=== PATIENT | female | born 1990 | race African-American/Black ===

== ENCOUNTER 2019-02-13 14:50 | Emergency (ER) | payer BC, OTHER, SELFPAY ==
[2019-02-13] MEDS ORDERED: Ketorolac Tromethamine 30 MG/ML VIAL ONE (15:12)
== END 2019-02-13 15:37 | disposition home or self-care (01) ==
LOC: ERS 14:50
DX: S33.5XXA Sprain of ligaments of lumbar spine, initial encounter (principal); W18.2XXA Fall in (into) shower or empty bathtub, initial encounter
CPT/HCPCS: 96372; 99283; J1885

== ENCOUNTER 2020-09-23 23:38 | Inpatient (IN) | payer OTHER ==
[2020-09-24] MEDS ORDERED: Ondansetron PF 4 MG/2 ML Vial ONE ×2 (01:14→10:54)
[2020-09-24] MEDS ORDERED: Piperacillin/Tazobactam 3.375 GM VIAL ONE (01:14)
[2020-09-24] MEDS ORDERED: Morphine 4 MG/ML VIAL ONE (01:14)
[2020-09-24 05:18] VITALS: BMI 45.4
[2020-09-24] MEDS: diphenhydrAMINE 25 MG CAP PO PRN (05:39)
[2020-09-24 06:17] LABS: Hemoglobin 10.9 g/dL (12.0-16.0); Mean Corpuscular HGB CONC 32.9 g/dL (32.0-36.0); Mean Corpuscular Hemoglobin 30.4 pg (27.0-31.0); Mean Corpuscular Volume 92.4 fL (78.0-98.0); Mean Platelet Volume 9.2 fL (7.4-10.4); Platelet Count 225 thou/uL (130-400); RBC Distribution Width 13.3 % (11.5-14.5); Red Blood Cell (RBC) Count 3.59 mill/uL (4.20-5.40); White Blood Cell (WBC) Count 4.5 thou/uL (4.8-10.8)
[2020-09-24] MEDS ORDERED: Ondansetron PF 4 MG/2 ML Vial IVP PRN (06:17)
[2020-09-24] MEDS ORDERED: Ondansetron ODT 4 MG TAB PO PRN (06:18)
[2020-09-24] MEDS ORDERED: Acetaminophen 325 MG TAB PO PRN (06:18)
[2020-09-24 06:20] LABS: SARS-CoV-2 NAA Rapid Test Not Detected (NotDetected)
[2020-09-24 06:39] LABS: Eosinophils 2 % (0-10); Lymphocytes 54 % (21-51); MDiff Complete? YES; Monocytes 9 % (0-10); Neutrophil 35 % (42-75)
[2020-09-24 06:50] LABS: ALT (SGPT) 367 U/L (8-55); AST (SGOT) 124 U/L (5-34); Albumin 3.5 g/dL (3.5-5.0); Alkaline Phosphatase 121 U/L (40-110); Anion Gap 10 mmol/L (10-20); BUN (Urea Nitrogen) 6 mg/dL (7.0-18.7); Bilirubin, Total 2.7 mg/dL (0.2-1.2); Calc. Creatinine Clearance 237 mL/min (70-130); Calcium 8.8 mg/dL (7.8-10.44); Carbon Dioxide 22 mmol/L (22-29); Chloride 109 mmol/L (98-107); Globulin 3.4 g/dL (2.4-3.5); Glucose 91 mg/dL (70-105); Potassium 3.5 mmol/L (3.5-5.1); Protein, Total 6.9 g/dL (6.0-8.3); Sodium 137 mmol/L (136-145)
[2020-09-24 09:25] LABS: ALT (SGPT) 369 U/L (8-55); AST (SGOT) 123 U/L (5-34); Albumin 3.5 g/dL (3.5-5.0); Alkaline Phosphatase 118 U/L (40-110); Bilirubin, Direct 1.9 mg/dL (0.1-0.3); Bilirubin, Total 2.6 mg/dL (0.2-1.2); Protein, Total 6.9 g/dL (6.0-8.3)
[2020-09-24] MEDS ORDERED: PHENYLEPHRINE-NS 100 MCG/ML 10 ML SYRINGE ONE ×2 (10:03→10:54)
[2020-09-24] MEDS ORDERED: SUGAMMADEX SODIUM 200 MG/2 ML VIAL ONE (10:03)
[2020-09-24] MEDS ORDERED: Phenylephrine 10 MG/ML VIAL ONE (10:03)
[2020-09-24] MEDS ORDERED: Fentanyl 250 MCG/5 ML VIAL ONE (10:03)
[2020-09-24] MEDS ORDERED: Bupivacaine 0.25% HCL 30 ML VIAL ONE (10:12)
[2020-09-24] MEDS ORDERED: EPINEPHrine 1 MG/ML AMP ONE (10:12)
[2020-09-24] MEDS: Sodium Chloride 0.9% 1,000 ML IV SCH ×2 (10:26→14:21)
[2020-09-24] MEDS ORDERED: Indomethacin 50 MG SUPP ONE (10:42)
[2020-09-24] MEDS ORDERED: Iothalamate Meglumine 60% 50 ML VIAL FS ONE (10:42)
[2020-09-24] MEDS ORDERED: PROPOFOL 200 MG/20 ML VIAL ONE (10:54)
[2020-09-24] MEDS ORDERED: Glycopyrrolate 0.2 MG/ML 5 ML SYRINGE ONE (10:54)
[2020-09-24] MEDS ORDERED: Lidocaine 1% PF 5 ML VIAL ONE (10:54)
[2020-09-24] MEDS ORDERED: Dexamethasone 20 MG/5 ML VIAL ONE (10:54)
[2020-09-24] MEDS ORDERED: Rocuronium Bromide 10 MG/ML (10ML VIAL) ONE (10:54)
[2020-09-24] MEDS ORDERED: ePHEDrine Sulfate 50 MG/10 ML VIAL ONE (10:54)
[2020-09-24] MEDS ORDERED: Ketorolac Tromethamine 30 MG/ML VIAL ONE (10:54)
[2020-09-24] MEDS: Piperacillin/Tazobactam 3.375 GM in Sodium Chloride 0.9% 100 ML IVPB SCH ×2 (11:08→18:29)
[2020-09-24] MEDS ORDERED: Promethazine HCl 25 MG/ML VIAL ONE (14:20)
[2020-09-24] MEDS ORDERED: Fentanyl 100 MCG/2 ML VIAL ONE ×3 (14:20→14:56)
[2020-09-24] MEDS ORDERED: Ketorolac Tromethamine 30 MG/ML VIAL IVP SCH (16:15)
[2020-09-24] MEDS: Morphine 4 MG/ML VIAL SLOW IVP PRN (18:28)
[2020-09-25] MEDS: Sodium Chloride 0.9% 1,000 ML IV SCH ×5 (04:09→23:02)
[2020-09-25] MEDS: Morphine 4 MG/ML VIAL SLOW IVP PRN ×2 (04:15→10:48)
[2020-09-25] MEDS: diphenhydrAMINE 25 MG CAP PO PRN (04:15)
[2020-09-25] MEDS: Piperacillin/Tazobactam 3.375 GM in Sodium Chloride 0.9% 100 ML IVPB SCH ×5 (04:19→21:40)
[2020-09-25 05:48] LABS: #Lymphocytes 1.2 thou/uL (1.20-3.40); #Monocytes 0.6 thou/uL (0.11-0.59); #Neutrophils 5.8 thou/uL (1.40-6.50); %Basophils 0.4 % (0.0-1.0); %Monocytes 7.9 % (0.0-10.0); %Neutrophils 75.7 % (42.0-75.0); Mean Corpuscular HGB CONC 31.4 g/dL (32.0-36.0); Mean Corpuscular Hemoglobin 28.8 pg (27.0-31.0); Mean Corpuscular Volume 91.6 fL (78.0-98.0); Mean Platelet Volume 9.6 fL (7.4-10.4); Platelet Count 217 thou/uL (130-400); RBC Distribution Width 13.4 % (11.5-14.5); Red Blood Cell (RBC) Count 3.82 mill/uL (4.20-5.40); White Blood Cell (WBC) Count 7.7 thou/uL (4.8-10.8)
[2020-09-25 06:10] LABS: ALT (SGPT) 400 U/L (8-55); AST (SGOT) 223 U/L (5-34); Albumin 3.3 g/dL (3.5-5.0); Alkaline Phosphatase 124 U/L (40-110); Anion Gap 11 mmol/L (10-20); BUN (Urea Nitrogen) 5 mg/dL (7.0-18.7); Bilirubin, Direct 1.7 mg/dL (0.1-0.3); Bilirubin, Total 2.5 mg/dL (0.2-1.2); Calc. Creatinine Clearance 244 mL/min (70-130); Calcium 9.1 mg/dL (7.8-10.44); Carbon Dioxide 22 mmol/L (22-29); Chloride 109 mmol/L (98-107); Glucose 99 mg/dL (70-105); Lipase 28 U/L (8-78); Potassium 3.8 mmol/L (3.5-5.1); Protein, Total 6.7 g/dL (6.0-8.3); Sodium 138 mmol/L (136-145)
[2020-09-25] MEDS ORDERED: Iothalamate Meglumine 60% 50 ML VIAL FS ONE (14:27)
[2020-09-25] MEDS ORDERED: Indomethacin 50 MG SUPP ONE (14:28)
[2020-09-25] MEDS ORDERED: Fentanyl 100 MCG/2 ML VIAL ONE (14:37)
[2020-09-25] MEDS ORDERED: Famotidine/PF 20 mg/2ml Vial ONE (14:37)
[2020-09-25] MEDS ORDERED: SUGAMMADEX SODIUM 200 MG/2 ML VIAL ONE (14:37)
[2020-09-25] MEDS ORDERED: Midazolam HCl 2 mg/2 ml Vial ONE (14:37)
[2020-09-25] MEDS ORDERED: Piperacillin/Tazobactam 3.375 GM VIAL ONE ×2 (14:43→14:48)
[2020-09-25] MEDS ORDERED: Sodium Chloride 0.9% 100 ML ONE (14:48)
[2020-09-25] MEDS ORDERED: Succinylcholine 200 MG/10 ml SYRINGE FS ONE (14:51)
[2020-09-25] MEDS ORDERED: PROPOFOL 200 MG/20 ML VIAL ONE (14:51)
[2020-09-25] MEDS ORDERED: Ondansetron PF 4 MG/2 ML Vial ONE (14:51)
[2020-09-25] MEDS ORDERED: Rocuronium Bromide 10 MG/ML (10ML VIAL) ONE (14:51)
[2020-09-25] MEDS ORDERED: Lidocaine 1% PF 5 ML VIAL ONE (14:51)
[2020-09-25] MEDS ORDERED: ePHEDrine Sulfate 50 MG/10 ML VIAL ONE (14:51)
[2020-09-25] MEDS ORDERED: Metoclopramide HCl 10 MG/2 ML VIAL ONE (14:51)
[2020-09-25] MEDS ORDERED: Promethazine HCl 25 MG/ML VIAL IM PRN (15:51)
[2020-09-25] MEDS ORDERED: Promethazine HCl 25 MG/ML VIAL SLOW IVP PRN (15:51)
[2020-09-25] MEDS ORDERED: Ondansetron HCl/PF 4 MG/2 ML Vial IVP PRN (15:51)
[2020-09-25] MEDS ORDERED: Promethazine HCl 25 MG/ML VIAL ONE (15:56)
[2020-09-26] MEDS: Piperacillin/Tazobactam 3.375 GM in Sodium Chloride 0.9% 100 ML IVPB SCH ×4 (03:14→21:45)
[2020-09-26] MEDS: Sodium Chloride 0.9% 1,000 ML IV SCH ×3 (06:30→15:29)
[2020-09-26 07:56] LABS: #Basophils 0.1 thou/uL (0.0-0.2); #Eosinphils 0.1 thou/uL (0.0-0.7); #Lymphocytes 1.7 thou/uL (1.20-3.40); #Monocytes 0.6 thou/uL (0.11-0.59); #Neutrophils 2.7 thou/uL (1.40-6.50); %Eosinophils 1.6 % (0.0-10.0); %Lymphocytes 33.2 % (21.0-51.0); %Monocytes 11.2 % (0.0-10.0); Hemoglobin 10.3 g/dL (12.0-16.0); Mean Corpuscular Hemoglobin 29.9 pg (27.0-31.0); Mean Corpuscular Volume 93.4 fL (78.0-98.0); Mean Platelet Volume 9.9 fL (7.4-10.4); Platelet Count 195 thou/uL (130-400); RBC Distribution Width 13.5 % (11.5-14.5); Red Blood Cell (RBC) Count 3.45 mill/uL (4.20-5.40); White Blood Cell (WBC) Count 5.2 thou/uL (4.8-10.8)
[2020-09-26 08:17] LABS: ALT (SGPT) 362 U/L (8-55); AST (SGOT) 180 U/L (5-34); Albumin 2.9 g/dL (3.5-5.0); Alkaline Phosphatase 121 U/L (40-110); Anion Gap 10 mmol/L (10-20); BUN (Urea Nitrogen) 4 mg/dL (7.0-18.7); Bilirubin, Total 4.2 mg/dL (0.2-1.2); Calc. Creatinine Clearance 251 mL/min (70-130); Calcium 8.7 mg/dL (7.8-10.44); Carbon Dioxide 24 mmol/L (22-29); Chloride 109 mmol/L (98-107); Glucose 85 mg/dL (70-105); Potassium 3.5 mmol/L (3.5-5.1); Protein, Total 6.2 g/dL (6.0-8.3); Sodium 139 mmol/L (136-145)
[2020-09-26] MEDS: Morphine 4 MG/ML VIAL SLOW IVP PRN ×2 (11:59→19:34)
[2020-09-26] MEDS: Cepastat Lozenges 1 LOZ PO PRN (20:34)
[2020-09-27] MEDS: Cepastat Lozenges 1 LOZ PO PRN (01:14)
[2020-09-27] MEDS: Morphine 4 MG/ML VIAL SLOW IVP PRN ×3 (01:14→15:45)
[2020-09-27] MEDS: Piperacillin/Tazobactam 3.375 GM in Sodium Chloride 0.9% 100 ML IVPB SCH ×3 (04:42→15:12)
[2020-09-27] MEDS: Sodium Chloride 0.9% 1,000 ML IV SCH (09:47)
[2020-09-27 12:32] LABS: RBC/HPF 0-3 HPF (0-3); Squamous Epithelial 0-3 HPF (0-3)
[2020-09-27 12:57] LABS: Bacteria/HPF Rare-Few HPF (None Seen)
[2020-09-27 15:58] VITALS: BP 122/77; TEMP 98.7
[2020-09-27] MEDS ORDERED: Clotrimazole 2% 3 Day Vag Cr 22.2 GM TUBE VAG SCH (21:00)
== END 2020-09-27 17:30 | disposition short-term general hospital (02) | DRG 418 ==
LOC: ERS 23:38 → SURG A 09-24 03:52
PROVIDERS: ADMIT Student in an Organized Health Care Education/Training Program; ATTEND Internal Medicine
PROC: 0FT44ZZ Resection of Gallbladder, Percutaneous Endoscopic Approach (ICD-10-PCS; principal; 2020-09-24)
PROC: 0FJB8ZZ Inspection of Hepatobiliary Duct, Via Natural or Artificial Opening Endoscopic (ICD-10-PCS; 2020-09-25)
DX: K80.43 Calculus of bile duct with acute cholecystitis with obstruction (principal); Z68.42 Body mass index [BMI] 45.0-49.9, adult; Z20.822 Contact with and (suspected) exposure to COVID-19; E66.01 Morbid (severe) obesity due to excess calories; K66.0 Peritoneal adhesions (postprocedural) (postinfection)
CPT/HCPCS: 36415; 74330; 76000; 76705; 80048; 80053; 80076; 81015; 83690; 85025; 88304; 96365; 96375; J0171; J1100; J1610; J1885; J2250; J2270; J2370; J2405; J2543; J2550; J2704; J2765; J3010; J3490; Q0163; Q9961; S0020; S0028; U0002; U0005